=== PATIENT | female | born 1975 | race Caucasian/White ===

== ENCOUNTER → 2019-12-06 13:28 | Outpatient (CLI) | payer BC, SELFPAY ==
--- NOTE | ~2019-12-06 | MM_ITS ---
EXAMINATION: MM screening fernando BI w kaz HISTORY: Screening mammogram, family history of breast cancer in her mother. TECHNIQUE: Craniocaudal and mediolateral oblique 3-D tomosynthesis images were obtained and synthetic 2-D images were generated. CAD analysis was submitted and interpreted. COMPARISON: 05/30/2018, 05/18/2018, 05/09/2018 BREAST PARENCHYMAL COMPOSITION: The breasts are heterogeneously dense, which may obscure small masses . FINDINGS: There has been interval right breast biopsy. Stable low-density masses are present in the u pper outer quadrant of the right breast in the lower right breast. There is no evidence of suspicious mass, calcification, or architectural distortion to suggest malignancy in either breast. There has b een no suspicious interval change. IMPRESSION: 1. No mammographic evidence of malignancy. 2. Recommend routine screening mammography in one year. BI-RADS Category 2: Benign finding(s). Reviewed, dictated and finalized at location A. 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
== END ==
PROVIDERS: PCP Family Medicine; Visit Provider Obstetrics & Gynecology
DX: Z12.31 Encounter for screening mammogram for malignant neoplasm of breast (principal)
CPT/HCPCS: 77063; 77067

== ENCOUNTER 2020-06-22 13:31 | Emergency (ER) | payer BC, SELFPAY ==
[2020-06-22 13:42] VITALS: BP 128/104; PULSE 106; RESP 16; TEMP 37.5; O2SAT 100
--- NOTE | 2020-06-22 14:04 | ECG_ITS ---
Measurements Intervals Lyons Rate: 94 P: 57 LA: 161 QRS: -43 QRSD: 93 T: 66 QT: 341 QTc: 428 Interpretive Statements SINUS RHYTHM POSSIBLE LEFT ATRIAL ENLARGEMENT LEFT AXIS DEVIATION INCOMPLETE RIGHT BUNDLE BRANCH BLOCK LOW QRS VOLTAGE IN PRECORDIAL LEADS BORDERLINE ECG Electronically Signed On 06-22-2020 18:07:18 CDT by Mikey Bennett D.O.
--- NOTE | 2020-06-22 14:30 | ED.UPPEXIN ---
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 Patient states she has a couple-day worsening, of known couple-year history of intermittent left shoulder pain. She states in the past she is worn a sling and been treated for frozen shoulder. A week ago [not this week] she was painting with overhead work. She now has a weekend history of left shoulder pain especially at her biceps insertion and AC joint. No trauma, swelling, neck pain, gait changes, radiating pain, precordial chest pain, calf pain/edema, S OB; symptoms are mild to moderate worse with activity. She requests refill of prior inhaler for allergy season . Related Data Allergies Allergy/AdvReac Type Severity Reaction Status Date / Time iodine Allergy Unknown HIVES/HEADACHE/N Verified 06/22/20 14:16 AND V Review of Systems Review of Systems: Narrative: The patient has been informed that they may have pre-hypertension or Hypertension based on a BP reading in the department. I recommend that the patient call the primary care provider listed on their discharge instructions or a physician of their choice this week to arrange follow up for further evaluation of possible pre-hypertension or Hypertension General/Constitutional: No weight loss,fever Eyes: N0: Redness,discharge Ears/Nose/Throat: No: Epistaxis,ear discharge Respiratory: Denies: Hemoptysis Gastrointestinal: No Vomiting, Bleeding-rectal Skin: No Lumps, eruption Neurologic: No Focal Weakness,Sz Hematologic: Denies: Petechiae/Purpura Psychiatric: No: Suicida ideationl All Other Systems: Reviewed and Negative [facility] Family History Family History (Updated 06/30/16 @ 09:29 by DOCTOR UNKNOWN) Mother Family history of malignant neoplasm of breast Family history of malignant neoplasm of thyroid Father Family history of type 2 diabetes mellitus Other Family history of type 1 diabetes mellitus Social History Social History Smoking status: Never smoker Alcohol intake: never Comments At time of signature, agree with nursing past medical, surgical, social and family history. There is no relevant family history pertinent to the presenting complaint Exam Narrative: Exam Narrative: General Appearance: Well appearing, Conjunctiva clear Mouth/Throat: Normal appearing, Normal lips Supple Respiratory: Airway patent, No respiratory distress MS-shoulder: Normal strength (mostly intact, limited flexion/extension, IR/ER by pain), Tenderness (biceps tendon insertion and AC joint, with mod-severe decreased ROM), no swelling , Other -unable to do drop arm, empty can, etc. testings Skin: Warm, Dry, Normal color Neurological: A&O x3, Speech clear, Normal affect Course Course Emergency Course: EKG sinus rhythm at 94 and possible LAE, rate 94, LAD -45 ,possible RV CD Vital Signs Vital signs: Vital Signs Temperature 99.5 F 06/22/20 13:42 Pulse Rate 106 H 06/22/20 13:42 Respiratory Rate 16 06/22/20 13:42 Blood Pressure 128/104 H 06/22/20 13:42 Pulse Oximetry 100 06/22/20 13:42 Temperature 99.5 F 06/22/20 13:42 Pulse Rate 106 H 06/22/20 13:42 Respiratory Rate 16 06/22/20 13:42 Blood Pressure 128/104 H 06/22/20 13:42 Pulse Oximetry 100 06/22/20 13:42 Discharge Plan Discharge Clinical Impression: Biceps tendonitis on left, Abnormal ECG Patient Disposition: Home, Self-Care Condition: Stable Instructions: Shoulder Bursitis (ED) Prescriptions: New prednisone 20 mg tablet 60 mg PO DAILY Qty: 15 RF: 0 acetaminophen-codeine 300-30 mg tablet 1 tablet PO HS PRN (Reason: pain) Qty: 10 RF: 0 tramadol 50 mg tablet 50 mg PO Q6H PRN (Reason: pain) Qty:
== END 2020-06-22 14:31 | disposition home or self-care (01) ==
PROVIDERS: Emergency Provider Emergency Medicine; PCP Family Medicine
DX: M75.22 Bicipital tendinitis, left shoulder (principal); R94.31 Abnormal electrocardiogram [ECG] [EKG]
CPT/HCPCS: 93005; 99213; G0463

== ENCOUNTER → 2020-08-01 10:24 | Outpatient (CLI) | payer BC, SELFPAY ==
--- NOTE | ~2020-08-01 | MR_ITS ---
EXAMINATION: MR shoulder LT wo con DATE: 08/01/2020 11:17 INDICATION: Left shoulder pain. TECHNIQUE: Magnetic resonance imaging (MRI) of the left shoulder was performed without intravenous co ntrast. Sequences included axial PD-weighted FS FSE, coronal oblique PD-weighted FS FSE and T2-weight ed FS FSE, and sagittal oblique T2-weighted FS FSE and T1-weighted FSE. COMPARISON: None. FINDINGS: Coracoacromial arch: The acromion undersurface is flat in morphology (type I). There is mild acromioclavicular joint osteo arthritis. There is mild subacromial/subdeltoid bursitis. Rotator cuff: There is moderate supraspinatus and anterior infraspinatus tendinopathy. No tear. Teres minor tendon is normal. There is moderate subscapularis tendinopathy. There is no asymmetric fatty atrophy of the rotator cuff muscle bellies. Biceps tendon and glenoid labrum: Biceps tendon is in bicipital groove. Intra-articular biceps tendon is normal. Glenoid labrum is norm al. Fluid: There is no glenohumeral joint effusion. Bones/cartilage: The glenoid cartilage is normal. The humeral head cartilage is normal. IMPRESSION: 1. Moderate rotator cuff tendinopathy. No tear. 2. Mild subacromial/subdeltoid bursitis. 3. Mild acromioclavicular joint osteoarthritis. Reviewed, dictated and finalized at location A.
== END ==
PROVIDERS: Visit Provider Nurse Practitioner Family
DX: M19.012 Primary osteoarthritis, left shoulder (principal); M75.52 Bursitis of left shoulder
CPT/HCPCS: 73221

== ENCOUNTER → 2020-12-08 10:22 | Outpatient (CLI) | payer BC, SELFPAY ==
--- NOTE | ~2020-12-08 | MM_ITS ---
EXAMINATION: MM screening fernando BI w kaz HISTORY: Screening mammogram, family history of breast cancer in her mother. TECHNIQUE: Craniocaudal and mediolateral oblique 3-D tomosynthesis images were obtained and synthetic 2-D images were generated. CAD analysis was submitted and interpreted. COMPARISON: 12/06/2019, 05/30/2018, 05/09/2018 BREAST PARENCHYMAL COMPOSITION: The breasts are heterogeneously dense, which may obscure small masses . FINDINGS: There are multiple stable bilateral masses in the breasts, previously characterized as cyst s. One obscured mass at the 12:00 location in the left breast is slightly enlarged but was also previ ously shown to be a cyst. There is no evidence of suspicious mass, calcification, or architectural di stortion to suggest malignancy in either breast. There has been no suspicious interval change. IMPRESSION: 1. No mammographic evidence of malignancy. 2. Recommend routine screening mammography in one year. BI-RADS Category 2: Benign finding(s). Reviewed, dictated and finalized at location A. 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
== END ==
PROVIDERS: Visit Provider Obstetrics & Gynecology
DX: Z12.31 Encounter for screening mammogram for malignant neoplasm of breast (principal)
CPT/HCPCS: 77063; 77067

== ENCOUNTER 2021-09-24 12:50 | Outpatient (CLI) | payer BC, SELFPAY ==
--- NOTE | ~2021-09-24 | US_ITS ---
EXAMINATION: US pelvic complete DATE: 09/24/2021 13:16 INDICATION: Abnormal uterine bleeding TECHNIQUE: Multiple transabdominal and endovaginal sonographic images of the pelvis were obtained. COMPARISON: 11/15/2018 FINDINGS: The uterus measures 13 x 6.5 x 6.6 cm. There is a questionable 4.1 cm isoechoic mass of the posterior uterine body which has an appearance suggestive of an intramural fibroid. The endometrial complex measures 6 mm. The right ovary measures 2.4 x 2.2 x 2.9 cm. The left ovary measures 3.6 x 2.8 x 5.3 cm. There is normal vascular flow in the ovaries. There is no free fluid in the pelvis. IMPRESSION: 1. No sonographic correlate for the patient's symptoms. Reviewed, dictated and finalized at location A. WORKER
== END 2021-09-24 12:51 ==
PROVIDERS: Visit Provider Obstetrics & Gynecology
DX: N93.8 Other specified abnormal uterine and vaginal bleeding (principal)
CPT/HCPCS: 76856

== ENCOUNTER 2021-10-25 01:24 | Day surgery (SDC) | payer BC, SELFPAY ==
[2021-10-18 15:13] VITALS: BMI 27.7
--- NOTE | 2021-10-18 15:23 | PC.NURSE ---
Report to the Outpatient Waiting Room, entrance under the green pavilion located off [facility], at time 0915 on date 10/25/21. OR Time: 1115. - You will be asked a series of questions to screen for COVID 19 for your protection. - A mask is required within the hospital. - No visitors are allowed at this time. Preoperative COVID Testing Requirements: No COVID Test needed if: (proof is required; if not received patient will have Rapid Test prior to entry) - Patient has received COVID Vaccine at least 14 days prior to procedure date or - Patient has positive COVID test result within last 90 days of surgery date. COVID Test needed if above criteria is not met Patients may have clear liquids (water, carbonated beverages, clear teas, apple juice) until 3 hours prior to surgery with a maximum of 20 ounces. - No food from midnight until time of surgery Take the following medications with a SIP of water the morning of surgery: INHALER (IF NEEDED) Medications to discontinue per physician: VITAMINS/SUPPLEMENTS Date to take last dose: 10/21/21 Please no make-up, nail romanian, hairspray, perfume, deodorant, or body powder the day of surgery. No jewelry (including any body piercings) or valuables the day of surgery, leave them at home. Please take a shower or bath the night before, or the morning of, surgery with an antibacterial soap. Wear comfortable, loose fitting clothing. - Jewelry must be removed prior to entering the operating room. Rings and piercings that are not removed may be cut off. - The hospital will not accept responsibility for valuables. - Please leave all valuables, including medications, at home the day of surgery. If you are going home after surgery, a licensed minibus driver must drive you home. - NO public transportation without another adult. - We recommend that an adult stay with you for 24 hours following discharge. - We also recommend that you do not drive, make important decision, drink alcoholic beverages, or take any drugs that were not prescribed by your health care provider for at least 24 hours after your discharge time. Follow any additional instructions given to you from your surgeon. Telephone instructions given to ARSEN MARIN and asked if any additional questions and then verbalized understanding. Patient advised to call surgeon office or pre surgery nurse liaison [phone] if any additional questions.
--- NOTE | 2021-10-25 07:23 | WPDHPUPDATE1 ---
History and Physical Update Update Date/Time: 10/25/21 07:23 History and Physical has been reviewed, including an updated exam of the patient. There are NO changes in the patient's condition. Risks, benefits, and alternatives have been discussed and questions answered. Patient agrees to proceed with procedure.
--- NOTE | 2021-10-25 07:24 | PM.HPGS ---
History of Present Illness History of Present Illness Consent: Risks, benefits, and alternatives have been discussed and questions answered. Patient agrees to proceed with procedure. Chief complaint: menorrhagia Narrative: Erinn Vargas is a 46 year old female with irregular and prolonged cycles. Patient is status post endometrial ablation in 2019. The patient underwent ultrasound September 24 with a possible intramural fibroid. It was recommended to further evaluate with D&C hysteroscopy. Risks of infection, bleeding, perforation, and possible inability to enter the cavity were reviewed with the patient. She was given Cytotec for 5 days prior to the procedure. Patient agrees to proceed Review of Systems Review of Systems: not repeated day of surgery; patient states no changes in status Genitourinary: Genitourinary: Reports other (Increased cramping) PMFSH Past Medical History Medical History (Updated 10/25/21 @ 07:28 by Ngozi Jones MD) Arthritis Asthma BMI 27.0-27.9,adult Claustrophobia GERD (gastroesophageal reflux disease) (normal spontaneous vaginal delivery) x3 Surgical History Surgical History (Updated 10/25/21 @ 07:27 by Ngozi Jones MD) History of breast biopsy History of endometrial ablation History of hysteroscopy Family History Family History Mother Family history of malignant neoplasm of breast Family history of malignant neoplasm of thyroid Father Family history of type 2 diabetes mellitus Other Diabetes mellitus Family history of type 1 diabetes mellitus Heart disease High cholesterol Hypertension Medullary carcinoma Skin cancer Social History Social History Smoking status: Never smoker Alcohol intake: current Drinks per week: 1 Alcohol use details: 2/MONTH Substance use: never Substance use type: does not use Living arrangements: with family Additional living arrangements comments: and 2 daUGHTERS Additional occupation/education comments: Gender identity (if verbalized by the patient): Female Sexual Orientation (if Verbalized by the Patient): Straight or Heterosexual Spiritual care concerns: No Agree to blood products: Yes Meds Home Medications and Allergies Home Medications Medication Instructions Recorded Confirmed Type montelukast 10 mg tablet See Rx Instructions .ROUTE 04/26/21 10/18/21 Rx .COMPLEX #90 tablet albuterol sulfate 90 mcg/actuation 1 inh INHALATION Q4H PRN #8.5 g 06/28/21 10/18/21 Rx aerosol inhaler [id number] carb-vit K 1 tablet PO DAILY 10/18/21 10/18/21 History [Women's Multivitamin] omeprazole magnesium [Prilosec OTC] 20 mg PO DAILY PRN 10/18/21 10/18/21 History Allergies Allergy/AdvReac Type Severity Reaction Status Date / Time shellfish derived Allergy Intermediate Hives Verified 10/18/21 15:11 iodine Allergy Unknown HIVES/HEADACHE/N Verified 10/18/21 15:11 AND V Exam Const: General: healthy appearing and alert Orientation/consciousness: patient oriented x3 Resp: Effort & Inspection: normal respiratory effort Auscultation: clear to auscultation bilaterally Cardio: Rate: regular rate Rhythm: regular rhythm GI: GI Palp: Yes Soft to palpation, No Tenderness to palpation present (GI) and No Palpable mass present : External Female Exam: normal external appearance Speculum Exam - Vagina: normal appearance of the vagina and normal vaginal discharge Speculum Exam - Cervix: normal appearance of the cervix Bimanual exam- vagina & uterus: consistency normal and enlarged Bimanual Exam- Adnexa, other: normal adnexae and No adnexal tenderness Neuro: General: patient oriented x3 Assessment and Plan Assessment and plan (1) Irregular menses: Code(s): N92.6 - Irregular menstruation, unspecified Status: Acute Asses
--- NOTE | 2021-10-25 08:20 | WPDANESEPPF ---
Anes - Initial Pre Proc Eval Procedure: Operation Date: 10/25/21 09:15 Proposed Procedures p Hysteroscopy Dilation and Curettage - Ngozi Jones MD Date/Time: 10/25/21 08:20 Surgeon: Ngozi Jones MD Pre Op Diagnosis: menorrhagia Patient Data Age: 46 Gender: F Height: 1.7 m Weight: 80 kg Allergies Allergy/AdvReac Type Severity Reaction Status Date / Time iodine Allergy Severe HIVES/HEADACHE/N Verified 10/25/21 08:24 AND V shellfish derived Allergy Severe Hives Verified 10/25/21 08:24 Home Medications Medication Instructions Recorded Confirmed Type montelukast 10 mg tablet See Rx Instructions .ROUTE 04/26/21 10/18/21 Rx .COMPLEX #90 tablet albuterol sulfate 90 mcg/actuation 1 inh INHALATION Q4H PRN #8.5 g 06/28/21 10/18/21 Rx aerosol inhaler [id number] carb-vit K 1 tablet PO DAILY 10/18/21 10/18/21 History [Women's Multivitamin] omeprazole magnesium [Prilosec OTC] 20 mg PO DAILY PRN 10/18/21 10/18/21 History Patient hx anesthesia problems: none Family hx anesthesia problems: none Results Review: All pre-operative results and documents have been reviewed as part of the pre-operative evaluation. COUNT INCLUDES THE [facility] Past Medical History Medical History Arthritis Asthma BMI 27.0-27.9,adult Claustrophobia GERD (gastroesophageal reflux disease) (normal spontaneous vaginal delivery) x3 Surgical History Surgical History History of breast biopsy History of endometrial ablation History of hysteroscopy Family History Family History Mother Family history of malignant neoplasm of breast Family history of malignant neoplasm of thyroid Father Family history of type 2 diabetes mellitus Other Diabetes mellitus Family history of type 1 diabetes mellitus Heart disease High cholesterol Hypertension Medullary carcinoma Skin cancer Social History Social History Smoking status: Never smoker Alcohol intake: current Drinks per week: 1 Alcohol use details: 2/MONTH Substance use: never Substance use type: does not use Living arrangements: with family Additional living arrangements comments: and 2 daUGHTERS Additional occupation/education comments: Gender identity (if verbalized by the patient): Female Sexual Orientation (if Verbalized by the Patient): Straight or Heterosexual Spiritual care concerns: No Agree to blood products: Yes Anes - Eval Final PreProcedure Day of Procedure 10/25/21 08:20 Patient weight: overweight Heart: regular rate and rhythm Lungs: clear to auscultation Airway: Mallampati scale class II Neurological: alert and oriented Last oral intake: >/= 8 hours ASA classification: II Emergent: no Anesthetic plan: proceed Anesthesia type and monitoring: general GIVS and standard monitoring Results Review: All pre-operative results and documents have been reviewed as part of the pre-operative evaluation. Informed Consent: The patient's anesthetic plan and its attendant risks and benefits were discussed with the patient/family/POA. Questions were solicited and answers provided to the satisfaction of the patient/family/POA.
[2021-10-25] MEDS: ACETAMINOPHEN 500 MG TABLET 1000 MG PO (08:28)
[2021-10-25] MEDS: LACTATED RINGERS 1,000 ML 30 ML IV CONT ×2 (08:30→09:50)
[2021-10-25 08:42] VITALS: BP 125/80; PULSE 80; RESP 20; TEMP 37.6; O2SAT 100
--- NOTE | 2021-10-25 09:26 | W.PM.PROC2 ---
Procedure Note - Detailed Date of Procedure 10/25/21 Pre-op Diagnosis menorrhagia Post-op Diagnosis same Procedure Performed D&C hysteroscopy Surgeon Ngozi Jones MD Anesthesia MAC and local Findings internal os stenosis; Uterus sounds to 8cm and appears grossly normal Description of Procedure the patient is taken to the operating room and placed under anesthesia in the dorsal lithotomy position. She was prepped and draped in the usual sterile fashion. Notrees speculum was placed in the vagina and the cervix is grasped on the anterior lip with a tenaculum. The cervix is injected in each quadrant with 1% lidocaine. The uterus is attempted to be sounded and there is stenosis and approximately 3cm. The os Finders were used and the cervix was then able to be dilated to an 8 Hegar. The uterus is sounded to 8cm. The diagnostic hysteroscope was placed and no abnormalities were noted. Hysteroscope was removed and the medium sharp curette used to curette the endometrium until a good uterine cry is noted in all areas. All instruments are removed. Patient is awakened from anesthesia and taken to recovery in stable condition. Sponge, needle, and instrument counts are correct per the OR staff. Estimated Blood Loss 5 Drains No Packing No Pathology yes ( endometrial curettings) Complications No immediate complications Condition stable Disposition PACU
[2021-10-25 09:29] VITALS: BP 92/63; PULSE 62; RESP 12; O2SAT 98
[2021-10-25 09:55] VITALS: BP 109/67; PULSE 67; RESP 16; O2SAT 99
[2021-10-25] MEDS: oxyCODONE HCL (*CRX) 5 MG TAB IR PO (10:00)
[2021-10-25 10:23] VITALS: BP 113/75
== END 2021-10-25 10:50 | disposition home or self-care (01) ==
PROVIDERS: PCP Family Medicine; Visit Provider Obstetrics & Gynecology Gynecology
PROC: 0U5B8ZZ Destruction of Endometrium, Via Natural or Artificial Opening Endoscopic (ICD-10-PCS; CPT 58563; principal; 2021-10-25 09:15)
DX: N92.1 Excessive and frequent menstruation with irregular cycle (principal); N84.0 Polyp of corpus uteri; N88.2 Stricture and stenosis of cervix uteri; M19.90 Unspecified osteoarthritis, unspecified site; J45.909 Unspecified asthma, uncomplicated; Z79.51 Long term (current) use of inhaled steroids; K21.9 Gastro-esophageal reflux disease without esophagitis; F40.240 Claustrophobia
CPT/HCPCS: 58558; 88305; A9270; J2250; J2405; J2704; J3010; J7030; J7120

== ENCOUNTER 2022-01-12 10:25 | Outpatient (CLI) | payer BC, SELFPAY ==
--- NOTE | ~2022-01-12 | MMUS_ITS ---
EXAMINATION: MM diagnostic fernando BI w kaz, US breast BI limited HISTORY: Palpable lump of the subareolar left breast TECHNIQUE: Craniocaudal, mediolateral, and mediolateral oblique 3-D tomosynthesis images of the david ts were performed and synthetic 2-D images were generated. CAD analysis was submitted and interpreted . High resolution limited bilateral breast ultrasound was performed. COMPARISON: 12/08/2020, 12/06/2019, 05/30/2018 BREAST PARENCHYMAL COMPOSITION: The breasts are heterogeneously dense, which may obscure small masses . FINDINGS: MAMMOGRAPHIC FINDINGS: Left breast: There is an approximately 1.8 cm oval, obscured, equal density mass in the subareolar as pect of the slightly upper, slightly inner breast corresponding to the palpable abnormality of concer n. No suspicious calcification or architectural distortion are identified. Right breast: There is an approximately 6 mm oval, circumscribed, equal density mass in the posterior third of the outer breast at the 9:00 location 8.5 cm from the nipple. ULTRASOUND: Left breast: There is a 1.8 cm predominantly anechoic mass with mobile internal debris at the 11:00 l ocation 3 cm from the nipple corresponding to the palpable abnormality of concern, consistent with a cyst. An adjacent 7 mm cyst with similar sonographic features is noted. Right breast: Multiple hypoechoic and anechoic masses are again seen in the upper outer quadrant of t he right breast which have an appearance similar to prior ultrasound examination. None definitely dem onstrate suspicious interval change IMPRESSION: 1. Complicated cyst in the subareolar left breast corresponding to the palpable abnormality of concer n and probably benign masses in the upper outer quadrant of the right breast. 2. Recommend 6 month follow-up right diagnostic mammogram and ultrasound. BI-RADS category 3, probably benign findings. Reviewed, dictated and finalized at location A. IMPRESSION: 1. Complicated cyst in the subareolar left breast corresponding to the palpable abnormality of concern and probably benign masses in the upper outer quadrant of the right breast. 2. Recommend 6 month follow-up right diagnostic mammogram and ultrasound. BI-RADS category 3, probably benign findings.
== END 2022-01-12 10:26 ==
PROVIDERS: Visit Provider Obstetrics & Gynecology Gynecology
DX: N63.20 Unspecified lump in the left breast, unspecified quadrant (principal); R92.8 Other abnormal and inconclusive findings on diagnostic imaging of breast
CPT/HCPCS: 76642; 77062; 77066; G0279

== ENCOUNTER 2022-07-05 08:44 | Outpatient (CLI) | payer BC, SELFPAY ==
--- NOTE | ~2022-07-05 | MMUS_ITS ---
EXAMINATION: MM diagnostic fernando BI w kaz, US breast RT limited HISTORY: Six-month follow-up for probably benign right breast masses TECHNIQUE: Craniocaudal, mediolateral, and mediolateral oblique 3-D tomosynthesis images of the david ts were performed and synthetic 2-D images were generated. CAD analysis was submitted and interpreted . High resolution limited right breast ultrasound was performed. COMPARISON: 01/12/2022, 12/08/2020, 12/06/2019, 05/30/2018 BREAST PARENCHYMAL COMPOSITION: The breasts are heterogeneously dense, which may obscure small masses . FINDINGS: MAMMOGRAPHIC FINDINGS: The previously described subareolar left breast mass is no longer evident. There are stable obscured bilateral breast masses without suspicious interval change. ULTRASOUND: Again seen are multiple stable hypoechoic and anechoic masses in the upper outer quadrant of the righ t breast. None demonstrate suspicious interval change. IMPRESSION: 1. Stable, probably benign right breast masses. 2. Recommend 6 month follow-up right diagnostic mammogram and ultrasound. BI-RADS category 3, probably benign findings. Reviewed, dictated and finalized at location A. IMPRESSION: 1. Stable, probably benign right breast masses. 2. Recommend 6 month follow-up right diagnostic mammogram and ultrasound. BI-RADS category 3, probably benign findings.
== END 2022-07-05 08:45 ==
PROVIDERS: PCP Family Medicine; Visit Provider Obstetrics & Gynecology Gynecology
DX: R92.8 Other abnormal and inconclusive findings on diagnostic imaging of breast (principal)
CPT/HCPCS: 76642; 77062; 77066; G0279

== ENCOUNTER → 2022-10-18 10:16 | Outpatient (CLI) | payer BC, SELFPAY ==
--- NOTE | ~2022-10-18 | US_ITS ---
Pelvic ultrasound. Clinical History: Pelvic pain Technique: Realtime transabdominal and transvaginal scanning of the pelvis was performed. Color flow Doppler and Doppler spectral analysis were performed. COMPARISON: 09/24/2021 Findings: The uterus is anteverted. The endometrial stripe has a thickness of 3 mm. Exophytic fundal fibroid measures 2.4 cm in diameter. Possible isoechoic posterior wall fibroid measures 4.1 cm, unch anged. The right ovary measures 3.6 x 1.9 x 2.3 cm. No significant right ovarian or adnexal mass is seen. The left ovary measures 3.9 x 2.5 x 2.9 cm. No significant left ovarian or adnexal mass is seen. Vascular flow present in both ovaries on Doppler spectral analysis. There is no evidence of free fluid in the cul de sac. Impression: Uterine fibroids, as above, unchanged. Reviewed, dictated and finalized at [facility]. [facility]INGLE [facility]OOFER Impression: Uterine fibroids, as above, unchanged.
== END ==
PROVIDERS: PCP Family Medicine; Visit Provider Nurse Practitioner
DX: R10.2 Pelvic and perineal pain (principal); D25.9 Leiomyoma of uterus, unspecified
CPT/HCPCS: 76856

== ENCOUNTER 2022-11-07 00:47 | Day surgery (SDC) | payer BC, SELFPAY ==
[2022-10-25 10:12] VITALS: BMI 28.7
--- NOTE | 2022-11-04 12:07 | PM.HPGS ---
History of Present Illness History of Present Illness Consent: Risks, benefits, and alternatives have been discussed and questions answered. Patient agrees to proceed with procedure. Chief complaint: neoplasm screening Narrative: Erinn Vargas is a 47 year old female referred for colon cancer screening. Review of Systems Review of Systems: All systems reviewed & are unremarkable except as noted in HPI and below PMFSH Past Medical History Medical History Arthritis Asthma BMI 27.0-27.9,adult Claustrophobia GERD (gastroesophageal reflux disease) (normal spontaneous vaginal delivery) x3 Overweight with body mass index (BMI) of 28 to 28.9 in adult Overweight with body mass index (BMI) of 28 to 28.9 in adult Surgical History Surgical History H/O dilation and curettage History of breast biopsy History of endometrial ablation History of hysteroscopy Family History Family History Mother Family history of malignant neoplasm of breast Family history of malignant neoplasm of thyroid Father Family history of type 2 diabetes mellitus Other Diabetes mellitus Family history of type 1 diabetes mellitus Heart disease High cholesterol Hypertension Medullary carcinoma Skin cancer Social History Social History Smoking status: Never smoker Alcohol intake: current Drinks per week: 1 Alcohol use details: 2/MONTH Substance use: never Substance use type: does not use Living arrangements: alone Additional living arrangements comments: and 2 daUGHTERS Occupation/Education: occupation Additional occupation/education comments: Gender identity (if verbalized by the patient): Female Sexual Orientation (if Verbalized by the Patient): Straight or Heterosexual Spiritual care concerns: No Agree to blood products: Yes Meds Home Medications and Allergies Home Medications Medication Instructions Recorded Confirmed Type omeprazole magnesium 20 mg 20 mg PO DAILY 10/18/21 11/04/22 History tablet,delayed release (Prilosec OTC) montelukast 10 mg tablet 10 mg PO HS #90 tabs 04/26/22 11/04/22 Rx levonorgestrel-ethinyl estradiol 1 tablet PO DAILY 10/25/22 11/04/22 History 0.1 mg-20 mcg tablet (Lutera (28)) albuterol sulfate 90 mcg/actuation 1 inh inhalation Q4H PRN shortness 11/04/22 11/04/22 Rx aerosol inhaler (ProAir HFA) of breath or wheezing #8.5 grams budesonide-formoterol HFA 160 1 inh inhalation PRN PRN Shortness 11/04/22 11/04/22 Rx mcg-4.5 mcg/actuation aerosol Of Breath #10.2 grams inhaler (Symbicort) Allergies Allergy/AdvReac Type Severity Reaction Status Date / Time iodine Allergy Severe HIVES/HEADACHE/N Verified 11/07/22 08:43 AND V shellfish derived Allergy Severe Hives Verified 11/07/22 08:43 Exam Resp: Auscultation: clear to auscultation bilaterally Cardio: Rate: regular rate Rhythm: regular rhythm GI: GI Palp: Yes Soft to palpation and No Tenderness to palpation present (GI) Assessment and Plan Assessment and plan (1) Colon cancer screening: Code(s): Z12.11 - Encounter for screening for malignant neoplasm of colon Status: Acute Assessment and Plan: Colonoscopy with possible biopsy or polypectomy or cautery or injection of substances.
[2022-11-07 08:49] VITALS: BP 134/87; PULSE 106; RESP 18; TEMP 36.6; O2SAT 100
[2022-11-07] MEDS: LACTATED RINGERS 1,000 ML 150 ML IV CONT (09:02)
--- NOTE | 2022-11-07 09:41 | WPDANESEPPF ---
Anes - Initial Pre Proc Eval Procedure: Operation Date: 11/07/22 10:00 Proposed Procedures p Screening Colonoscopy - Jose Frankel MD Date/Time: 11/07/22 09:41 Surgeon: Jose Frankel MD Pre Op Diagnosis: neoplasm screening Patient Data Age: 47 Gender: F Height: 1.7 m Weight: 83.8 kg Last Vital Signs Temp 97.8 F 11/07/22 08:49 Pulse 106 H 11/07/22 08:49 Resp 18 11/07/22 08:49 BP 134/87 11/07/22 08:49 Pulse Ox 100 11/07/22 08:49 O2 Del Method Room Air 11/07/22 08:49 Allergies Allergy/AdvReac Type Severity Reaction Status Date / Time iodine Allergy Severe HIVES/HEADACHE/N Verified 11/07/22 08:43 AND V shellfish derived Allergy Severe Hives Verified 11/07/22 08:43 Home Medications Medication Instructions Recorded Confirmed Type omeprazole magnesium 20 mg 20 mg PO DAILY 10/18/21 11/04/22 History tablet,delayed release (Prilosec OTC) montelukast 10 mg tablet 10 mg PO HS #90 tabs 04/26/22 11/04/22 Rx levonorgestrel-ethinyl estradiol 1 tablet PO DAILY 10/25/22 11/04/22 History 0.1 mg-20 mcg tablet (Lutera (28)) albuterol sulfate 90 mcg/actuation 1 inh inhalation Q4H PRN shortness 11/04/22 11/04/22 Rx aerosol inhaler (ProAir HFA) of breath or wheezing #8.5 grams budesonide-formoterol HFA 160 1 inh inhalation PRN PRN Shortness 11/04/22 11/04/22 Rx mcg-4.5 mcg/actuation aerosol Of Breath #10.2 grams inhaler (Symbicort) Patient hx anesthesia problems: none Family hx anesthesia problems: none Results Review: All pre-operative results and documents have been reviewed as part of the pre-operative evaluation. [facility] Past Medical History Medical History (Updated 11/04/22 @ 12:07 by Jose Frankel MD) Arthritis Asthma BMI 27.0-27.9,adult Claustrophobia GERD (gastroesophageal reflux disease) (normal spontaneous vaginal delivery) x3 Overweight with body mass index (BMI) of 28 to 28.9 in adult Overweight with body mass index (BMI) of 28 to 28.9 in adult Surgical History Surgical History H/O dilation and curettage History of breast biopsy History of endometrial ablation History of hysteroscopy Family History Family History Mother Family history of malignant neoplasm of breast Family history of malignant neoplasm of thyroid Father Family history of type 2 diabetes mellitus Other Diabetes mellitus Family history of type 1 diabetes mellitus Heart disease High cholesterol Hypertension Medullary carcinoma Skin cancer Social History Social History Smoking status: Never smoker Alcohol intake: current Drinks per week: 1 Alcohol use details: 2/MONTH Substance use: never Substance use type: does not use Living arrangements: alone Additional living arrangements comments: and 2 daUGHTERS Occupation/Education: occupation Additional occupation/education comments: Gender identity (if verbalized by the patient): Female Sexual Orientation (if Verbalized by the Patient): Straight or Heterosexual Spiritual care concerns: No Agree to blood products: Yes Anes - Eval Final PreProcedure Day of Procedure 11/07/22 09:41 Patient weight: normal Heart: regular rate and rhythm Lungs: clear to auscultation Airway: Mallampati scale class II Neurological: alert and oriented Last oral intake: >/= 8 hours ASA classification: II Emergent: no Anesthetic plan: proceed Anesthesia type and monitoring: general GIVS and standard monitoring Results Review: All pre-operative results and documents have been reviewed as part of the pre-operative evaluation. Informed Consent: The patient's anesthetic plan and its attendant risks and benefits were discussed with the patient/family/POA. Questions were solicited and answers provided to the satisfaction of the
[2022-11-07] MEDS: SIMETHICONE ORAL SUSPENSION 20 MG/0.3 ML 30 ML BOTTLE 0.6 ML IRRIGATION (10:12)
[2022-11-07 10:29] VITALS: BP 101/68; PULSE 93; RESP 26; O2SAT 97
[2022-11-07 10:39] VITALS: BP 101/71; PULSE 90; RESP 21; O2SAT 100
[2022-11-07 10:49] VITALS: BP 108/72; PULSE 90; RESP 22; O2SAT 100
--- NOTE | 2022-11-07 10:49 | SUR.PHASEII ---
Zoya Laboy CRNA, had patient take 2 puffs of inhaler when she arrived in post-op room. Patient's O2 sat has remained 97% and greater while in post-op.
== END 2022-11-07 10:53 | disposition home or self-care (01) ==
PROVIDERS: PCP Nurse Practitioner Family; Visit Provider Internal Medicine Gastroenterology
PROC: 0DJD8ZZ Inspection of Lower Intestinal Tract, Via Natural or Artificial Opening Endoscopic (ICD-10-PCS; CPT 45378; principal; 2022-11-07 10:00)
DX: Z12.11 Encounter for screening for malignant neoplasm of colon (principal); K64.8 Other hemorrhoids; J45.909 Unspecified asthma, uncomplicated; K21.9 Gastro-esophageal reflux disease without esophagitis; Z79.51 Long term (current) use of inhaled steroids
CPT/HCPCS: 45378; J2001; J2704; J7120

== ENCOUNTER → 2023-01-02 07:53 | Outpatient (CLI) | payer BC, SELFPAY ==
--- NOTE | ~2023-01-02 | MMUS_ITS ---
EXAMINATION: MM diagnostic fernando RT w kaz, US breast RT limited HISTORY: Follow-up right breast masses TECHNIQUE: Additional 3-D tomosynthesis images of the right breast were performed and synthetic 2-D i mages were generated. CAD analysis was submitted and interpreted. High resolution Limited right breas t ultrasound was performed. COMPARISON: Comparison to multiple prior studies sequentially, with oldest reviewed study dated 05/30. BREAST PARENCHYMAL COMPOSITION: The breasts are heterogeneously dense, which may obscure small masses FINDINGS: MAMMOGRAPHIC FINDINGS: There are multiple masses of the right breast which are not significantly changed by mammography dati ng back to 05/30/2018 no new masses, calcifications or architectural distortion. Allowing for differen sharita of technique. ULTRASOUND: Limited right breast ultrasound: At 12:00, 4 cm from the nipple there is a minimally complicated 7 mm cyst. At 12:00, 6 cm from the nipple, there is a oval hypoechoic mass measuring 6 mm with circumscri bed margins, parallel orientation, likely benign. At 11:00, 8 cm from the nipple there is an oval hyp oechoic mass measuring 10 x 9 x 8 mm. No significant change to size allowing for differences of techn ique. No internal vascularity or significant posterior features. At 11:00, 7 cm from the nipple there is a 4 mm cyst. At 10:00, 6 cm from the nipple there is a 6 mm cyst. At 10:00, 6 cm from the nipple there is a minimally complicated 5 mm cyst. At 10:00, 3 cm from the nipple there is a 6 mm cyst. At 1 0:00, 1 cm from the nipple there is a minimally complicated 9 mm cyst. At 9:00, 6 cm from the nipple there is an oval circumscribed hypoechoic mass with parallel orientation and no posterior features, l ikely benign. Also at this location is a 3 mm cyst. At 9:00, 1 cm from the nipple there is an oval ci rcumscribed hypoechoic mass measuring 7 x 4 x 7 mm with parallel orientation, no posterior features a nd no internal vascularity. No the areola there is a 4 mm cyst. Also near the areola there is a minim ally complicated 6 mm cyst. IMPRESSION: 1. Probable benign right breast masses at 11:00, 8 cm from the nipple and 9:00, 6 cm from the nipple. 2. Recommend 6 month follow-up diagnostic bilateral mammogram and Limited right breast ultrasound. BI-RADS category 3, probably benign findings. Reviewed, dictated and finalized at location A. IMPRESSION: 1. Probable benign right breast masses at 11:00, 8 cm from the nipple and 9:00, 6 cm from the nipple. 2. Recommend 6 month follow-up diagnostic bilateral mammogram and Limited right breast ultrasound. BI-RADS category 3, probably benign findings.
== END ==
PROVIDERS: PCP Family Medicine; Visit Provider Obstetrics & Gynecology Gynecology
DX: N63.10 Unspecified lump in the right breast, unspecified quadrant (principal); R92.8 Other abnormal and inconclusive findings on diagnostic imaging of breast
CPT/HCPCS: 76642; 77061; 77065; G0279

== ENCOUNTER 2023-01-27 08:13 | Outpatient (CLI) | payer BC, SELFPAY ==
[2023-01-27 08:47] LABS: Hematocrit 40.1 % (37.0-47.0); Hemoglobin 13.1 g/dL (12.0-15.0)
== END 2023-01-27 08:14 | disposition home or self-care (01) ==
LOC: ANHSURGERY 08:18
PROVIDERS: PCP Family Medicine; Visit Provider Obstetrics & Gynecology Gynecology
DX: Z01.812 Encounter for preprocedural laboratory examination (principal); D21.9 Benign neoplasm of connective and other soft tissue, unspecified
CPT/HCPCS: 36415; 85014; 85018; 86850; 86900; 86901

== ENCOUNTER 2023-02-06 11:04 | Inpatient (IN) | payer BC, SELFPAY ==
[2023-01-26 12:15] VITALS: BMI 28.5
--- NOTE | 2023-01-26 12:20 | PC.NURSE ---
Report to the Outpatient Waiting Room, entrance under the green pavilion located off [facility], at time 6:00 on date 02/06/23. Planned Procedure Time: 7:30. Time changes happen often and if your time is changed the preop area will call you the afternoon before. - You and your visitor will be asked to self-screen and do not enter if you have any COVID symptoms. - A mask is optional within the hospital at this time. Patients may have clear liquids (water, carbonated beverages, clear teas, apple juice) until 3 hours prior to surgery with a maximum of 20 ounces. - No food from midnight until time of surgery Take the following medications with a SIP of water the morning of surgery: INHALERS IF NEEDED DO NOT STOP ANY OF YOUR OTHER PRESCRIPTION MEDICATIONS PRIOR TO SURGERY EXCEPT THE FOLLOWING Medications to discontinue per physician: N/A Date to take last dose: N/A Please no make-up, nail cameroonian, hairspray, perfume, deodorant, or body powder the day of surgery. No jewelry (including any body piercings) or valuables the day of surgery, leave them at home. Please take a shower or bath the night before, or the morning of, surgery with an antibacterial soap. Wear comfortable, loose fitting clothing. - Jewelry must be removed prior to entering the operating room. Rings and piercings that are not removed may be cut off. - The hospital will not accept responsibility for valuables. - Please leave all valuables, including medications, at home the day of surgery. If you are going home after surgery, a licensed warehouse driver must drive you home. - NO public transportation without another adult if you receive anesthesia. - We recommend that an adult stay with you for 24 hours following discharge. - We also recommend that you do not drive, make important decision, drink alcoholic beverages, or take any drugs that were not prescribed by your health care provider for at least 24 hours after your discharge time. Follow any additional instructions given to you from your surgeon. If you or anyone in your household have experienced Covid symptoms in the past week, please notify your surgeon or the nurse liaison at the phone number below for possible testing. Telephone instructions given to PT - ARSEN MARIN and asked if any additional questions and then verbalized understanding. Patient advised to call surgeon office or pre surgery nurse liaison [phone] if any additional questions.
[2023-02-06] VITALS (17 sets, daily range): BP systolic 116–132; BP diastolic 67–86; PULSE 52–82; RESP 10–18; TEMP 36.6–37.2; O2SAT 97–100
[2023-02-06] MEDS: LACTATED RINGERS 1,000 ML 30 ML IV CONT ×3 (06:45→10:15)
[2023-02-06] MEDS: KETOROLAC 15 MG/ML VIAL (*BKC) IV PUSH (07:00)
[2023-02-06] MEDS: ACETAMINOPHEN 500 MG TABLET 1000 MG PO (07:00)
[2023-02-06] MEDS: SCOPOLAMINE 1.5 MG PATCH TRANSDERM (07:00)
--- NOTE | 2023-02-06 07:07 | WPDANESEPPF ---
Anes - Initial Pre Proc Eval Procedure: Operation Date: 02/06/23 07:30 Proposed Procedures p Total Abdominal Hysterectomy with Bilateral Salpingo-oophorectomy - Ngozi Jones MD Date/Time: 02/06/23 07:07 Surgeon: Ngozi Jones MD Pre Op Diagnosis: Fibroids, Menorrhagia, Dysmenorrhea Patient Data Age: 48 Gender: F Height: 1.71 m Weight: 83.92 kg Allergies Allergy/AdvReac Type Severity Reaction Status Date / Time iodine Allergy Severe HIVES/HEADACHE/N Verified 01/26/23 12:13 AND V shellfish derived Allergy Severe Hives Verified 01/26/23 12:13 Home Medications Medication Instructions Recorded Confirmed Type omeprazole magnesium 20 mg 20 mg PO DAILY 10/18/21 01/26/23 History tablet,delayed release (Prilosec OTC) montelukast 10 mg tablet 10 mg PO HS #90 tabs 04/26/22 01/26/23 Rx levonorgestrel-ethinyl estradiol 1 tablet PO DAILY 10/25/22 01/26/23 History 0.1 mg-20 mcg tablet (Lutera (28)) budesonide-formoterol HFA 160 1 inh inhalation PRN PRN Shortness 11/04/22 01/26/23 Rx mcg-4.5 mcg/actuation aerosol Of Breath #10.2 grams inhaler (Symbicort) albuterol sulfate 90 mcg/actuation 1 inh inhalation Q4H PRN shortness 01/15/23 01/26/23 Rx aerosol inhaler (ProAir HFA) of breath or wheezing #8.5 grams Patient hx anesthesia problems: none Family hx anesthesia problems: post op nausea/vomiting Results Review: All pre-operative results and documents have been reviewed as part of the pre-operative evaluation. [facility] Past Medical History Medical History Arthritis Asthma BMI 27.0-27.9,adult Claustrophobia GERD (gastroesophageal reflux disease) (normal spontaneous vaginal delivery) x3 Overweight with body mass index (BMI) of 28 to 28.9 in adult Overweight with body mass index (BMI) of 28 to 28.9 in adult Surgical History Surgical History H/O dilation and curettage History of breast biopsy History of endometrial ablation History of hysteroscopy Family History Family History Mother Family history of malignant neoplasm of breast Family history of malignant neoplasm of thyroid Skin cancer Father Family history of type 2 diabetes mellitus Sibling No problems noted. Other Diabetes mellitus Family history of type 1 diabetes mellitus Heart disease High cholesterol Hypertension Medullary carcinoma Social History Social History Smoking status: Never smoker Second hand tobacco smoke exposure: Yes Alcohol intake: current Drinks per week: 1 Alcohol use details: 1/MONTH Substance use: never Substance use type: does not use Lack of Transportation: No Lack of Food: Never True Current Housing: I Have Housing Concerned About Future Housing: No Difficulty Paying Gas/Electric Bills: No Difficulty Paying for Meds: No Currently Unemployed: No Education: Associate Degree Difficulty w/ Childcare or Family Care: No Living arrangements: with family Additional living arrangements comments: and 2 daUGHTERS Occupation/Education: occupation Additional occupation/education comments: Gender identity (if verbalized by the patient): Female Sexual Orientation (if Verbalized by the Patient): Straight or Heterosexual Spiritual care concerns: No Agree to blood products: Yes Anes - Eval Final PreProcedure Day of Procedure 02/06/23 07:07 Patient weight: overweight Heart: regular rate and rhythm Lungs: clear to auscultation Airway: Mallampati scale class II Neurological: alert and oriented Last oral intake: >/= 8 hours ASA classification: II Emergent: no Anesthetic plan: proceed Anesthesia type and monitoring: general ETT and standard monitoring Results Review: All pre-
--- NOTE | 2023-02-06 07:10 | WPDHPUPDATE1 ---
History and Physical Update Update Date/Time: 02/06/23 07:10 History and Physical has been reviewed, including an updated exam of the patient. There are NO changes in the patient's condition. Risks, benefits, and alternatives have been discussed and questions answered. Patient agrees to proceed with procedure.
--- NOTE | 2023-02-06 07:10 | PM.IMHP ---
H&P: HPI History of Present Illness Date/Time: 02/06/23 07:10 Chief Complaint: Fibroid uterus Narrative: 48-year-old 3 para 3 being admitted for total abdominal hysterectomy with bilateral salpingo-oophorectomy secondary to fibroid uterus that is symptomatic. Patient with increased cramping and pelvic pressure. She has tried several options for menorrhagia with minimal success. The risks infection, bleeding injury to internal organs ( bowel, bladder, ureters ) DVT and anesthesia are reviewed. The patient voices understanding and agrees to proceed. Estrogen replacement therapy pros/cons were also discussed and the patient plans to proceed. Review of Systems Review of Systems: not repeated day of surgery; patient states no changes in status All systems reviewed & are unremarkable except as noted in HPI and below ( HPI) [facility] Past Medical History Medical History (Updated 02/06/23 @ 07:14 by Ngozi Jones MD) Arthritis Asthma BMI 27.0-27.9,adult Claustrophobia GERD (gastroesophageal reflux disease) (normal spontaneous vaginal delivery) x3 Surgical History Surgical History H/O dilation and curettage History of breast biopsy History of endometrial ablation History of hysteroscopy Family History Family History Mother Family history of malignant neoplasm of breast Family history of malignant neoplasm of thyroid Skin cancer Father Family history of type 2 diabetes mellitus Sibling No problems noted. Other Diabetes mellitus Family history of type 1 diabetes mellitus Heart disease High cholesterol Hypertension Medullary carcinoma Social History Social History Smoking status: Never smoker Second hand tobacco smoke exposure: Yes Alcohol intake: current Drinks per week: 1 Alcohol use details: 1/MONTH Substance use: never Substance use type: does not use Lack of Transportation: No Lack of Food: Never True Current Housing: I Have Housing Concerned About Future Housing: No Difficulty Paying Gas/Electric Bills: No Difficulty Paying for Meds: No Currently Unemployed: No Education: Associate Degree Difficulty w/ Childcare or Family Care: No Living arrangements: with family Additional living arrangements comments: and 2 daUGHTERS Occupation/Education: occupation Additional occupation/education comments: Gender identity (if verbalized by the patient): Female Sexual Orientation (if Verbalized by the Patient): Straight or Heterosexual Spiritual care concerns: No Agree to blood products: Yes Meds Home Medications and Allergies Home Medications Medication Instructions Recorded Confirmed Type omeprazole magnesium 20 mg 20 mg PO DAILY 10/18/21 01/26/23 History tablet,delayed release (Prilosec OTC) montelukast 10 mg tablet 10 mg PO HS #90 tabs 04/26/22 01/26/23 Rx levonorgestrel-ethinyl estradiol 1 tablet PO DAILY 10/25/22 01/26/23 History 0.1 mg-20 mcg tablet (Lutera (28)) budesonide-formoterol HFA 160 1 inh inhalation PRN PRN Shortness 11/04/22 01/26/23 Rx mcg-4.5 mcg/actuation aerosol Of Breath #10.2 grams inhaler (Symbicort) albuterol sulfate 90 mcg/actuation 1 inh inhalation Q4H PRN shortness 01/15/23 01/26/23 Rx aerosol inhaler (ProAir HFA) of breath or wheezing #8.5 grams Allergies Allergy/AdvReac Type Severity Reaction Status Date / Time iodine Allergy Severe HIVES/HEADACHE/N Verified 01/26/23 12:13 AND V shellfish derived Allergy Severe Hives Verified 01/26/23 12:13 Exam Const: General: healthy appearing and alert Orientation/consciousness: patient oriented x3 Resp: Effort & Inspection: normal respiratory effort GI: GI Palp: Yes Soft to palpation, No Tenderness to palpation present (GI) and No Pa
[2023-02-06] MEDS: METHYLENE BLUE 0.5% INJ 10 ML AMPULE 20 ML IRRIGATION (08:54)
--- NOTE | 2023-02-06 09:18 | P.OP_ITS ---
Procedure Note - Detailed Date of Procedure 02/06/23 Pre-op Diagnosis Fibroids, Menorrhagia, Dysmenorrhea Post-op Diagnosis Same Procedure Performed [facility] Surgeon Ngozi Jones MD Anesthesia General Findings enlarged fibroid uterus; normal-appearing tubes and ovaries Description of Procedure The patient is taken to the operating room and placed under general anesthesia. She was prepped and draped in the usual sterile fashion. A Pfannenstiel skin i ncision was made with a scalpel and carried down to the underlying layer of fascia which was nicked in midline. The incision was extended laterally using Dexter scissors. Ochsner was used to tent the fascia which was then dissected off using sharp and blunt dissection. The rectus muscles are in the midline the peritoneum entered with a Peon. The incision is extended with blunt traction. Bowel was packed away using moist laparotomy sponges. The Dwain is placed. The uterus was grasped on the cornea with large Peons. The round ligaments are doubly ligated with 0 Vicryl, transected, and the anterior leaf of the broad ligament incised meeting in the midline. A window was created in the posterior leaf of the broad ligament and the infundibulopelvic ligaments were doubly clamped, transected, and suture ligated with 0 Vicryl. Uterine vessels are skeletonized, clamped, transected, and suture ligated with 0 Vicryl. The cardinal and uterosacral ligaments are serially clamped, transected, and suture ligated with 0 Vicryl. The uterosacral ligaments were tagged for future use. A scalpel used to enter the vaginal cuff anteriorly. Jorgensons were used to amputate the specimen grasping the vaginal cuff with Allis clamps as specimen was amputated. Vaginal cuff was then closed using 0 Vicryl in a running fashion. Same suture was used in [id number] fashion to obtain hemostasis. During closure of the cuff the anesthesia noted blood-tinged urine. The bladder was filled with methylene blue tinged sterile ceiling. No defect was noted. The bladder was then drained. The bladder flap peritoneum was raw and hemoderm was placed between the cuff and the bladder flap. No active bleeding was noted. All sponges and instruments were then removed. The fascia was closed using 0 Vicryl in a running fashion. Subcutaneous tissues were irrigated made hemostatic using Bovie cautery. Skin incision was closed using 4-0 Vicryl in a subcuticular fashion. Dermaflex was placed the incision. Patient is awakened from anesthesia and taken to recovery in stable condition. Estimated Blood Loss 300 Drains Yes ( Voss catheter) Packing No Pathology Yes ( uterus, tubes, ovaries) Complications No immediate complications Condition Stable Disposition PACU
--- NOTE | 2023-02-06 09:24 | P.DS_ITS ---
DS: Admitting Diagnosis Discharge Date 02/08/23 Admitting Diagnosis symptomatic fibroid uterus DS: Discharge Diagnosis Discharge Diagnosis (1) Status post total abdominal hysterectomy and bilateral salpingo- oophorectomy: Code(s): Z90.710 - Acquired absence of both cervix and uterus; Z90.722 - Acquired absence of ovaries, bilateral; Z90.79 - Acquired absence of other genital organ(s) Status: Acute DS: Summary Hospital Course Hospital Course: At the time of discharge, the patient is tolerating regular diet, voiding, and ambulating. Status at Discharge Functional status at discharge: independent ambulation Overall status at discharge: patient is progressing back to baseline Time Spent with Patient Time attestation: Total time spent providing and/or coordinating discharge services: DS: Data Data Completed and Pending Pending studies at discharge: Pending at discharge 02/06/23 08:32 Surgical [PTH] Routine Discharge Plan Discharge Attending physician on discharge: Ngozi Jones Discharging Clinician: Brooklyn Trivedi Anticipated Discharge Date/Time: 02/08/23 07:59 Patient Disposition: Home, Self-Care Activity: may shower, may drive after 2 weeks and pelvic rest Diet: regular Wound Care Instructions: incision open to air Patient Instructions: Hysterectomy (DC) Stand Alone Forms: General Discharge Instructions Follow-up/Referrals: Ngozi Jones MD [Physician] - 1 Week (and 6 wk) Discharge Medications: New estradiol [Climara] 0.1 mg/24 hr Patch Weekly 0.1 mg transdermal Q7D Qty: 12 0RF Continued montelukast 10 mg tablet 10 mg PO HS Qty: 90 1RF budesonide-formoterol [Symbicort] 160-4.5 mcg/actuation HFA aerosol inhaler 1 inh inhalation PRN PRN (Reason: Shortness Of Breath) Qty: 10.2 4RF omeprazole magnesium [Prilosec OTC] 20 mg Tablet,Delayed Release (Dr/Ec) 20 mg PO DAILY albuterol sulfate [ProAir HFA] 90 mcg/actuation HFA aerosol inhaler 1 inh inhalation Q4H PRN (Reason: shortness of breath or wheezing) Qty: 8.5 1RF Discontinued levonorgestrel-ethinyl estrad [Lutera (28)] 0.1-20 mg-mcg Tablet 1 tablet PO DAILY Date of admission: 02/06/23 11:04 Primary Care Provider: Alcon Solano Admitting Provider: Ngozi Jones Attending physician on admission: Brooklyn Trivedi Condition: Stable
[2023-02-06] MEDS: fentaNYL CITRATE INJ (*CRX) 100 MCG/2 ML VIAL 25 MCG IV PUSH ×6 (09:43→10:12)
[2023-02-06] MEDS: HYDROmorphone HCL INJ (*CRX) 1 MG/ML SYR IV PUSH ×2 (10:24→10:44)
--- NOTE | 2023-02-06 11:03 | PC.NURSE ---
This patient, Erinn Vargas, was received from PACU on 02/06/23 at 1103. Patient/family oriented to unit policies and routines
[2023-02-06] MEDS: DEXTROSE 5%/LACTATED RINGERS 1,000 ML 125 ML IV CONT ×2 (12:02→20:30)
[2023-02-06] MEDS: FENTANYL 600MCG/NS30MLPCA(*CRX 600 MCG/30 ML PCA.VIAL IV CONT (12:03)
[2023-02-06] MEDS: ESTRADIOL 7 DAY 0.1 MG PATCH TRANSDERM (12:30)
[2023-02-06] MEDS: ONDANSETRON INJ 4 MG/2 ML VIAL IV PUSH (18:06)
[2023-02-06] MEDS: KETOROLAC 30 MG/ML VIAL (*BKC) IV PUSH (19:13)
[2023-02-07 00:01] VITALS: RESP 18; O2SAT 99
[2023-02-07 00:09] VITALS: BP 127/74; PULSE 85; RESP 18; TEMP 37.4; O2SAT 99
[2023-02-07] MEDS: KETOROLAC 30 MG/ML VIAL (*BKC) IV PUSH ×2 (01:19→08:28)
[2023-02-07 04:38] VITALS: BP 122/75; PULSE 66; RESP 18; TEMP 37.4; O2SAT 99
[2023-02-07 05:07] LABS: Basophils Percent Auto 0.2 % (0.2-1.2); Eosinophils Percent Auto 0.3 % (0-4.4); Hematocrit 31.7 % (37.0-47.0); Hemoglobin 10.1 g/dL (12.0-15.0); Immature Granulocyte Absolute 0.06 K/mm3 (0.00-0.031); Immature Granulocyte Percent A 0.5 % (0-0.5); Lymphocytes Absolute Auto 1.58 K/mm3 (0.9-3.2); Lymphocytes Percent Auto 12.5 % (18.3-44.2); Mean Corpuscular HGB Conc 31.9 g/dl (32-36); Mean Corpuscular Hemoglobin 27.8 pg (26-34); Mean Corpuscular Volume 87.3 fl (80-100); Mean Platelet Volume 10.9 fl (7.4-10.4); Neutrophils Percent Auto 78.5 % (45.5-73.1); Platelet Count Result 239 k/mm3 (150-375); Red Blood Count 3.63 M/mm3 (4.2-5.4); Red Cell Distribution Width 14.2 % (11.5-14.5); White Blood Count 12.7 K/mm3 (4.5-10.0)
--- NOTE | 2023-02-07 07:58 | PM.GYNPNOP ---
CHILD PROTECTIVE SERVICES SOCIAL WORKER - A/P Postoperative Procedures: Procedures Operation Date: 02/06/23 07:30 Actual Procedure Side Surgeon p Total Abdominal Hysterectomy with Bilateral Salpingo-oophorectomy Not Applicable Ngozi Jones MD Postoperative day: 1 Postoperative status: doing well Time Spent With Patient Time: Total time spent is greater than 50% in coordination of care (as documented) at patient's floor/unit and/or counseling patient: Time with patient: less than 15 minutes CHILD PROTECTIVE SERVICES SOCIAL WORKER- PN:Subj Post-Op Subjective Date/time seen: 02/07/23 07:58 Subjective: patient has no complaints, pain is well controlled and other (voided several times) Exam Narrative: inc c/d/i abdomen soft, nt, nd CHILD PROTECTIVE SERVICES SOCIAL WORKER - PN: Obj Data Vital Signs Vital Signs: Vital Signs - 24 hr 02/06/23 09:21 02/06/23 09:30 02/06/23 09:45 Temperature 97.8 F Pulse Rate 52 L 56 L 53 L Respiratory Rate 10 L 16 14 Blood Pressure 121/71 132/68 122/72 Pulse Oximetry 100 100 100 Oxygen Delivery Simple Face Mask Simple Face Mask Simple Face Mask Oxygen Flow Rate 8 8 8 02/06/23 10:00 02/06/23 10:15 02/06/23 10:30 Temperature Pulse Rate 57 L 64 67 Respiratory Rate 14 12 14 Blood Pressure 121/70 125/70 123/76 Pulse Oximetry 97 98 97 Oxygen Delivery Room Air Room Air Room Air Oxygen Flow Rate 02/06/23 10:45 02/06/23 11:00 02/06/23 12:03 Temperature Pulse Rate 65 60 Respiratory Rate 12 12 16 Blood Pressure 117/75 118/67 Pulse Oximetry 97 97 97 Oxygen Delivery Room Air Room Air Oxygen Flow Rate 02/06/23 11:15 02/06/23 14:00 02/06/23 16:27 Temperature 98.1 F 98.1 F Pulse Rate 65 82 Respiratory Rate 18 16 18 Blood Pressure 116/81 124/86 Pulse Oximetry 97 97 97 Oxygen Delivery Oxygen Flow Rate 02/06/23 16:00 02/06/23 13:00 02/06/23 15:00 Temperature Pulse Rate Respiratory Rate 18 16 18 Blood Pressure Pulse Oximetry 98 97 97 Oxygen Delivery Oxygen Flow Rate 02/06/23 19:38 02/06/23 19:38 02/07/23 00:09 Temperature 98.9 F 99.3 F Pulse Rate 75 75 85 Respiratory Rate 18 18 18 Blood Pressure 125/70 127/74 Pulse Oximetry 99 99 99 Oxygen Delivery Room Air Oxygen Flow Rate 02/07/23 00:09 02/07/23 00:01 02/07/23 04:38 Temperature 99.3 F Pulse Rate 85 66 Respiratory Rate 18 18 18 Blood Pressure 122/75 Pulse Oximetry 99 99 99 Oxygen Delivery Room Air Oxygen Flow Rate 02/07/23 04:38 Temperature Pulse Rate 66 Respiratory Rate 18 Blood Pressure Pulse Oximetry 99 Oxygen Delivery Room Air Oxygen Flow Rate Intake/Output Intake/Output: Intake & Output 02/04/23 02/05/23 02/06/23 02/07/23 23:59 23:59 23:59 23:59 Intake Total 2140 815.5 Output Total 750 600 Balance 1390 215.5 Meds/Results Medications: Active Medications Generic Name Dose Route Start Last Admin Trade Name Freq PRN Reason Stop Dose Admin Hydrocodone Bitart/Acetaminophen 1 tab 02/06/23 11:04 Hydrocodone/Acetaminophen (*Crx) 10-325 Mg Tablet PO Q3H PRN Pain Rated 6 or Greater Hydrocodone Bitart/Acetaminophen 1 tab 02/06/23 11:04 Hydrocodone/Acetaminophen (*Crx) 5-325 Mg Tablet PO Q3H PRN Pain Rated 5 or Less Albuterol 1 puff 02/06/23 11:04 Albuterol Sulfate (*Sp) Aerosol 1 Puff INHALATION Q4H PRN shortness of breath or wheezing Estradiol 0.1 mg 02/06/23 09:00 02/06/23 12:30 Estradiol 7 Day 0.1 Mg Patch TRANSDERM 0.1 mg Q7D LYDIA Administration Dextrose/Lactated Ringer's 1,000 mls @ 125 mls/hr 02/06/23 11:04 02/07/23 04:41 Dextrose 5%/Lactated Ringers IV CONT 0 mls/hr .Q8H LYDIA Infusion Fentanyl Citrate 600 mcg in 30 mls @ 0.5 mls/hr 02/06/23 11:04 02/07/23 04:41 Fentanyl 600 Mcg/Ns 30 Ml Blow Moulding Machine Operator IV CONT 10 mcg/hr PRN PRN 0.5 mls/hr TINSEL MACHINE OPERATOR Management Titration Protocol 10 MCG/HR Ketorolac Tromethamine 30 mg 02/06/23 18:49 02/07/23 01:19 Ketorolac 30 Mg/Ml Vial (*Bkc) IV PUSH 30 mg Q6H PRN Adm
[2023-02-07 08:15] VITALS: BP 112/69; PULSE 68; RESP 18; TEMP 36.8; O2SAT 100
[2023-02-07] MEDS: MONTELUKAST SODIUM 10 MG TABLET PO (08:28)
[2023-02-07] MEDS: SERTRALINE HCL 50 MG TABLET PO (08:28)
[2023-02-07] MEDS: ONDANSETRON INJ 4 MG/2 ML VIAL IV PUSH (08:29)
--- NOTE | 2023-02-07 09:36 | WPDANESPN ---
Anes - Prog Note Post-Op Date/Time: 02/07/23 09:36 Vital Signs: Last Vital Signs Temp 36.8 C 02/07/23 08:15 Pulse 68 02/07/23 08:15 Resp 18 02/07/23 08:15 BP 112/69 02/07/23 08:15 Pulse Ox 100 02/07/23 08:15 O2 Del Method Room Air 02/07/23 04:38 O2 Flow Rate 8 02/06/23 09:45 Pain Score (VAS): 0 I/O: Intake & Output 02/06/23 02/07/23 02/07/23 23:59 07:59 15:59 Intake Total 1240 815.5 Output Total 700 600 Balance 540 215.5 Laboratory Tests 02/07/23 04:09 02/07/23 04:09 WBC 12.7 H RBC 3.63 L Hgb 10.1 L D Hct 31.7 L MCV 87.3 MCH 27.8 MCHC 31.9 L RDW 14.2 Plt Count 239 MPV 10.9 H Immature Gran % (Auto) 0.5 Neut % (Auto) 78.5 H Lymph % (Auto) 12.5 L [place] % (Auto) 8.0 Eos % (Auto) 0.3 Baso % (Auto) 0.2 Lymph # (Auto) 1.58 [place] # (Auto) 1.0 H Eos # (Auto) 0.0 Baso # (Auto) 0.0 Abs Immat Gran (auto) 0.06 H Absolute Neuts (auto) 10.0 H Absolute Nucleated RBC 0.0 Nucleated RBC % 0.0 Patient Feedback: Patient satisfied with anesthetic care.
[2023-02-07 16:00] VITALS: BP 118/79; PULSE 85; RESP 16; TEMP 36.9; O2SAT 98
[2023-02-07 19:30] VITALS: BP 116/70; PULSE 65; RESP 16; TEMP 36.5; O2SAT 99
[2023-02-07] MEDS: HYDROcodone/acetaminophen (*CRX) 5-325 MG TABLET 1 TAB PO (20:20)
[2023-02-08] MEDS: SERTRALINE HCL 50 MG TABLET PO (07:30)
[2023-02-08] MEDS: MONTELUKAST SODIUM 10 MG TABLET PO (07:30)
[2023-02-08] MEDS: HYDROcodone/acetaminophen (*CRX) 5-325 MG TABLET 1 TAB PO ×2 (07:31→09:46)
--- NOTE | 2023-02-08 07:58 | WPDPN ---
Progress Note: A&P Assessment and Plan (1) Post-op pain: Code(s): G89.18 - Other acute postprocedural pain Status: Acute (2) Status post total abdominal hysterectomy and bilateral salpingo-oophorectomy: Code(s): Z90.710 - Acquired absence of both cervix and uterus; Z90.722 - Acquired absence of ovaries, bilateral; Z90.79 - Acquired absence of other genital organ(s) Status: Acute Plan POD 2. Plan DC home today. F/up in office in 1 week for incision check. Time Spent With Patient Time with patient: 15 - 25 minutes Subjective Date/time seen: 02/08/23 07:58 Interval history: Pt doing well. POD 2 from [facility]. Ambulating in room. Tolerating po food and fluid although she reports decreased appetite. Passing flatus. Review of Systems Review of Systems: All systems reviewed & are unremarkable except as noted in HPI and below Exam Const: General: cooperative, no acute distress and awake Orientation/consciousness: patient oriented x3 Limitations: no limitations Resp: Effort & Inspection: normal respiratory effort and able to speak in complete sentences Auscultation: clear to auscultation bilaterally Cardio: Rate: regular rate Peripheral pulses: Peripheral pulses 2+ throughout GI: Inspection: normal to inspection Auscultation: normal bowel sounds : General: Yes bladder normal to palpation Bimanual exam- vagina & uterus: bladder normal to palpation Skin: General skin exam: normal color Other: Incision C/D/I. Skin glue present. Neuro: General: patient oriented x3 Cognition (Neuro): normal cognition Speech: normal speech Extrem: General: normal to inspection Psych: Appearance: grossly normal Mental Status: mental status grossly normal Speech and movement: Normal speech and movement present Affect: normal affect Attitude: cooperative Thought process: Normal thought process present Objective Data Vital Signs Vital Signs: Vital Signs - 24 hr 02/07/23 08:15 02/07/23 16:00 02/07/23 16:00 Temperature 98.3 F 98.4 F Pulse Rate 68 85 85 Respiratory Rate 18 16 16 Blood Pressure 112/69 118/79 Pulse Oximetry 100 98 98 Oxygen Delivery Room Air 02/07/23 19:30 02/07/23 19:30 Temperature 97.7 F Pulse Rate 65 65 Respiratory Rate 16 16 Blood Pressure 116/70 Pulse Oximetry 99 99 Oxygen Delivery Room Air Intake/Output Intake/Output: Intake & Output 02/05/23 02/06/23 02/07/23 02/08/23 23:59 23:59 23:59 23:59 Intake Total 2140 1555.5 Output Total 750 600 Balance 1390 955.5 Meds/Results Medications: Active Medications Generic Name Dose Route Start Last Admin Trade Name Freq PRN Reason Stop Dose Admin Hydrocodone Bitart/Acetaminophen 1 tab 02/06/23 11:04 Hydrocodone/Acetaminophen (*Crx) 10-325 Mg Tablet PO Q3H PRN Pain Rated 6 or Greater Hydrocodone Bitart/Acetaminophen 1 tab 02/06/23 11:04 02/08/23 07:31 Hydrocodone/Acetaminophen (*Crx) 5-325 Mg Tablet PO 1 tab Q3H PRN Administration Pain Rated 5 or Less Albuterol 1 puff 02/06/23 11:04 Albuterol Sulfate (*Sp) Aerosol 1 Puff INHALATION Q4H PRN shortness of breath or wheezing Estradiol 0.1 mg 02/06/23 09:00 02/06/23 12:30 Estradiol 7 Day 0.1 Mg Patch TRANSDERM 0.1 mg Q7D LYDIA Administration Ketorolac Tromethamine 30 mg 02/06/23 18:49 02/07/23 08:28 Ketorolac 30 Mg/Ml Vial (*Bkc) IV PUSH 30 mg Q6H PRN Administration Pain Rated 4-6 Montelukast Sodium 10 mg 02/07/23 09:00 02/08/23 07:30 Montelukast Sodium 10 Mg Tablet PO 10 mg QAM LYDIA Administration Ondansetron HCl 4 mg 02/06/23 11:04 02/07/23 08:29 Ondansetron Inj 4 Mg/2 Ml Vial IV PUSH 4 mg Q6H PRN Administration Nausea Pantoprazole Sodium 40 mg 02/07/23 09:00 02/08/23 07:31 Pantoprazole 40 Mg Tablet PO Not Given QAM LYDIA Fluticasone/Salmeterol 2 puff 02/06/23 11:17 Fluticasone/Salmeterol 115-21 Mcg Inhaler 1 Puff INHALATION Q1
[2023-02-08 08:20] VITALS: BP 128/73; PULSE 74; RESP 18; TEMP 37.6; O2SAT 100
== END 2023-02-08 09:50 | disposition home or self-care (01) | DRG 743 ==
LOC: ANHOB2 11:09
PROVIDERS: Admitting Provider Obstetrics & Gynecology Gynecology; PCP Family Medicine; Visit Provider Advanced Practice Midwife
PROC: 0UT94ZZ Resection of Uterus, Percutaneous Endoscopic Approach (ICD-10-PCS; principal; 2023-02-06 07:30)
DX: D25.9 Leiomyoma of uterus, unspecified (principal); N92.0 Excessive and frequent menstruation with regular cycle; N94.6 Dysmenorrhea, unspecified; K21.9 Gastro-esophageal reflux disease without esophagitis; M19.90 Unspecified osteoarthritis, unspecified site; J45.909 Unspecified asthma, uncomplicated
CPT/HCPCS: 36415; 85025; 88307; A9270; J1100; J1170; J1885; J2250; J2405; J2704; J2710; J3010; J7120; J7121; Q9968

== ENCOUNTER 2023-06-05 12:14 | Outpatient (CLI) | payer BC, SELFPAY ==
--- NOTE | 2023-06-08 15:53 | WPDHOLTEREM ---
Holter/Event Monitor Holter/Event Monitor Date of procedure: 06/05/23 Holter/Event Procedure: 48 Hr Holter Monitor Indications: Tachycardia Conclusion: 1. 48 hour holter monitor on 06/05/23. 2. Underlying rhythm is sinus rhythm. HR range 41-122 bpm; average HR 69 bpm. HR at 41 bpm was at 02:36. 3. There are 8 premature supraventricular complexes and 2 supraventricular couplets. No supraventricular tachycardia. 4. There are 655 premature ventricular complexes, 4 ventricular couplets. No ventricular tachycardia. 5. No sinoatrial or atrioventricular blocks. No significant pauses greater than 2 seconds. 6. No symptoms available for correlation.
== END 2023-06-05 12:15 | disposition home or self-care (01) ==
PROVIDERS: PCP Family Medicine; Visit Provider Family Medicine
DX: R00.0 Tachycardia, unspecified (principal)
CPT/HCPCS: 93225; 93226

== ENCOUNTER 2023-07-08 13:48 | Emergency (ER) | payer BC, SELFPAY ==
--- NOTE | ~2023-07-08 | XR_ITS ---
EXAMINATION: XR chest 2V Exam Date/Time: 07/08/2023 14:20 CDT HISTORY: arrythmia, palpitations Comparison: None. RESULT: Lines, tubes, and devices: None. Lungs and pleura: Clear. Cardiomediastinal silhouette: Unremarkable. Other: No acute osseous or upper abdominal finding. IMPRESSION: No acute cardiopulmonary process. Reviewed, dictated and finalized at location K.
--- NOTE | 2023-07-08 13:53 | ECG_ITS ---
Measurements Intervals [place] Rate: 83 P: 57 ME: 161 QRS: -46 QRSD: 94 T: 55 QT: 365 QTc: 429 Interpretive Statements SINUS RHYTHM POSSIBLE LEFT ATRIAL ENLARGEMENT LOW QRS VOLTAGE IN PRECORDIAL LEADS INCOMPLETE RIGHT BUNDLE BRANCH BLOCK LEFT ANTERIOR FASCICULAR BLOCK BORDERLINE T WAVE ABNORMALITY- ANTERIOR LEADS ABNORMAL ECG COMPARED TO ECG 06/22/2020 14:04:47 LEFT ANTERIOR FASCICULAR BLOCK NOW PRESENT Electronically Signed On 07-09-2023 6:55:11 CDT by Mikey Bennett D.O.
[2023-07-08 13:55] VITALS: BP 113/70; PULSE 81; PULSE 83; RESP 16; TEMP 36.4; O2SAT 100
--- NOTE | 2023-07-08 13:59 | ED.ARRPALP ---
HPI - Arrhythmia/Palpitations General Chief Complaint: Arrhythmia/Palpitations Stated Complaint: Elevated HR Time Seen by Provider: 07/08/23 13:54 History of Present Illness HPI narrative: Patient is a 48-year-old female with history of PVCs, asthma here with palpitations and chest pain. She states she gets frequent episodes of chest discomfort, heart racing and fatigue. She had an episode last or heart rate got up into the 200s. She states that today she got 2 episodes. The 1st occurred while she was vacuuming and her heart rate read on her watch in the 140s. This episode lasted about 30 minutes. Her 2nd episode was similar in length and occurred while she was eating lunch. She notes that she gets some associated fatigue and chest heaviness when this occurs as well as diaphoresis. She denies shortness of breath. She notes that she has seen her primary care doctor, had a Holter monitor, is referred to Cardiology and has an appointment on July [address] Carpenter scheduled regarding her PVCs. She had a previously normal TSH during this workup. She denies any leg swelling, history of PE or DVT, calf pain, recent travels, recent surgeries aside from a hysterectomy in January 2023. She has had mild nasal congestion and an intermittent cough over the last few weeks but denies any fever or chills or other illnesses. Related Data Home Medications Medication Instructions Recorded Confirmed omeprazole magnesium 20 mg 20 mg PO DAILY 10/18/21 05/04/23 tablet,delayed release (Prilosec OTC) sertraline 20 mg/mL oral 20 mg PO DAILY 05/04/23 05/04/23 concentrate (Zoloft) Allergies Allergy/AdvReac Type Severity Reaction Status Date / Time iodine Allergy Severe HIVES/HEADACHE/N Verified 05/04/23 13:34 AND V shellfish derived Allergy Severe Hives Verified 05/04/23 13:34 Review of Systems Review of Systems: CONSTITUTIONAL: Denies fever, chills, or sweats. EYES: Denies visual changes, redness, or discharge. ENT: Mild congestion, Denies rhinorrhea, sore throat, or otalgia. CARDIOVASCULAR: chest pain, palpitations, No edema. RESPIRATORY: Mild intermittent cough or no dyspnea. GASTROINTESTINAL: Denies abdominal pain, nausea, vomiting, or diarrhea. GENITOURINARY: Denies dysuria or hematuria. SKIN: Denies rash or itching. MUSCULOSKELETAL: Denies back pain, joint pain, or myalgia. NEUROLOGIC: Denies headache, numbness, or weakness. Generalized fatigue. PSYCHIATRIC: Denies anxiety or depression. [facility] Past Medical History Medical History (Updated 07/08/23 @ 17:21 by Aparna Ngo MD) Arthritis Asthma BMI 27.0-27.9,adult Claustrophobia GERD (gastroesophageal reflux disease) (normal spontaneous vaginal delivery) x3 Tachycardia Surgical History Surgical History H/O dilation and curettage History of breast biopsy History of endometrial ablation History of hysteroscopy Family History Family History Mother Family history of malignant neoplasm of breast Family history of malignant neoplasm of thyroid Skin cancer Father Family history of type 2 diabetes mellitus Sibling No problems noted. Other Diabetes mellitus Family history of type 1 diabetes mellitus Heart disease High cholesterol Hypertension Medullary carcinoma Social History Social History Smoking status: Never smoker Second hand tobacco smoke exposure: Yes Alcohol intake: current Drinks per week: 1 Alcohol use details: 1/MONTH Substance use: never Substance use type: does not use Lack of Transportation: No Lack of Food: Never True Current Housing: I Have Housing Concerned About Future Housing: No Difficulty Paying Gas/Electric Bills: No Difficulty Paying for Meds: No Currently Unemployed: No Education: Associate Degree [employer]
[2023-07-08 14:17] LABS: Basophils Absolute Auto 0.1 K/mm3 (0.0-0.1); Basophils Percent Auto 0.8 % (0.2-1.2); Eosinophils Absolute Auto 0.2 K/mm3 (0-0.3); Eosinophils Percent Auto 2.4 % (0-4.4); Hematocrit 37.4 % (37.0-47.0); Immature Granulocyte Absolute 0.01 K/mm3 (0.00-0.031); Immature Granulocyte Percent A 0.2 % (0-0.5); Lymphocytes Absolute Auto 1.75 K/mm3 (0.9-3.2); Mean Corpuscular HGB Conc 32.1 g/dl (32-36); Mean Corpuscular Hemoglobin 27.1 pg (26-34); Mean Corpuscular Volume 84.6 fl (80-100); Monocytes Absolute Auto 0.4 K/mm3 (0.1-0.6); Monocytes Percent Auto 6.6 % (2.6-8.5); Neutrophils Absolute Auto 3.9 K/mm3 (1.3-6.7); Platelet Count Result 246 k/mm3 (150-375); Red Blood Count 4.42 M/mm3 (4.2-5.4); Red Cell Distribution Width 15.3 % (11.5-14.5); White Blood Count 6.3 K/mm3 (4.5-10.0)
[2023-07-08 14:28] LABS: Alanine Aminotransferase 19 U/L (6-35); Albumin Level 4.3 g/dL (3.5-5.1); Alkaline Phosphatase 74 U/L (38-126); Anion Gap 5 mmol/L (8-16); Aspartate Amino Transferase 25 U/L (14-36); Bilirubin,Total 0.5 mg/dL (0.2-1.3); Blood Urea Nitrogen 14 mg/dL (7-17); Calcium 9.2 mg/dL (8.4-10.2); Carbon Dioxide 29 mmol/L (22-30); Chloride 105 mmol/L (98-107); Estimated CRCL calculation 77 ml/min; Estimated Glomerular Filt Rate > 60; Glucose 100 mg/dL (65-110); Potassium 3.7 mmol/L (3.4-5.0); Sodium 139 mmol/L (137-145)
[2023-07-08 14:29] LABS: Magnesium 2.3 mg/dL (1.6-2.3); Prothrombin Time 13.7 Seconds (11.1-14.7)
[2023-07-08 14:40] LABS: Troponin I < 0.012 ng/mL (0.000-0.034)
[2023-07-08 14:55] LABS: D Dimer 0.29 ug/mL (<0.48)
[2023-07-08 14:59] LABS: Thyroid Stimulating Hormone Reflex 0.427 uIU/mL (0.465-4.68)
[2023-07-08] MEDS: POTASSIUM BICARBONATE 25 MEQ TABEF 50 MEQ PO (15:21)
[2023-07-08 15:24] VITALS: BP 111/73; PULSE 77; RESP 18; O2SAT 100
[2023-07-08 16:26] LABS: Total Triiodothyronine (T3) 1.32 NG/ML (0.97-1.69)
[2023-07-08 16:50] VITALS: BP 115/84; PULSE 71; RESP 20; O2SAT 100
[2023-07-08 17:16] LABS: Troponin I < 0.012 ng/mL (0.000-0.034)
[2023-07-08 17:21] VITALS: BP 112/76; PULSE 66; RESP 20; O2SAT 100
== END 2023-07-08 17:29 | disposition home or self-care (01) ==
PROVIDERS: Emergency Medicine; Emergency Provider Student in an Organized Health Care Education/Training Program; PCP Family Medicine
DX: R00.2 Palpitations (principal); J45.909 Unspecified asthma, uncomplicated; M19.90 Unspecified osteoarthritis, unspecified site; K21.9 Gastro-esophageal reflux disease without esophagitis; R94.31 Abnormal electrocardiogram [ECG] [EKG]; I45.2 Bifascicular block
CPT/HCPCS: 36415; 71046; 80053; 83735; 84439; 84443; 84480; 84484; 85025; 85380; 85610; 85730; 93005; 99284; A9270

== ENCOUNTER 2024-01-26 09:23 | Outpatient (CLI) | payer BC, SELFPAY ==
--- NOTE | ~2024-01-26 | MMUS_ITS ---
EXAMINATION: MM diagnostic fernando BI w kaz, US breast RT complete HISTORY: Follow-up right breast masses TECHNIQUE: Additional 3-D tomosynthesis images of the breasts were performed and synthetic 2-D images were generated. CAD analysis was submitted and interpreted. High resolution complete right breast ul trasound was performed. COMPARISON: None Comparison to multiple prior studies sequentially, with oldest reviewed study dated 01/12/2022. BREAST PARENCHYMAL COMPOSITION: Dense: The breasts are heterogeneously dense, which may obscure small masses FINDINGS: MAMMOGRAPHIC FINDINGS: The left breast is stable without evidence for malignancy. There is no a new mass in the lower centra l aspect of the right breast posteriorly with central calcification. There is a mass in the upper out er quadrant of the right breast which is not significantly changed from prior examination. There is a new mass in the lower outer quadrant of the right breast, best seen on CC view, middle third. ULTRASOUND: Complete US of all 4 quadrants of the right breast and retroareolar region was reviewed. At 12:00, 4 cm from the nipple there is a 5 mm intramammary lymph node. At 1:00, 7 cm from the nipple, there is a 7 mm cyst. At 2:00, 6 cm from the nipple, there is an oval hypoechoic 8mm mass with parallel orienta tion, low level internal echoes, likely benign. At 2:00, 6 cm from the nipple, there is a 5 mm cyst. At 3:00, 10 cm from the nipple there is a 4 mm cyst. At 3:00, 4 cm from the nipple there is a [address] At 6:00, 5 cm from the nipple, there is a hypoechoic mass with central echogenicity measuring 8 x 9 x 6 mm, likely corresponding to the new mass seen on mammography. There is no internal vascularity . At 7:00, 8 cm from the nipple there is a 5 mm cyst. At 8:00, 7 cm from the nipple there is a 3 mm c yst. At 11:00, 8 cm from the nipple there is an oval hypoechoic 9 mm mass measuring 9 x 4 x 7 mm whic h appears smaller than on prior examination, likely benign complicated cyst. No internal vascularity or posterior features. IMPRESSION: 1. New right breast mass located at 6:00, 5 cm from the nipple measuring 9 mm, likely corresponding t o new mammographic finding. Ultrasound-guided right breast biopsy recommended. 2. Additional right breast masses are likely benign. Six-month follow-up ultrasound recommended. BI-RADS category 4, suspicious findings. Reviewed, dictated and finalized at location A. IMPRESSION: 1. New right breast mass located at 6:00, 5 cm from the nipple measuring 9 mm, likely corresponding to new mammographic finding. Ultrasound-guided right breas t biopsy recommended. 2. Additional right breast masses are likely benign. Six-month follow-up ultras ound recommended. BI-RADS category 4, suspicious findings.
== END 2024-01-26 09:24 ==
LOC: MICIMG 09:24
PROVIDERS: PCP Nurse Practitioner; Visit Provider Nurse Practitioner
DX: R92.8 Other abnormal and inconclusive findings on diagnostic imaging of breast (principal)
CPT/HCPCS: 76641; 77062; 77066; G0279

== ENCOUNTER 2024-04-30 10:57 | Outpatient (CLI) | payer BC, SELFPAY ==
--- NOTE | ~2024-04-30 | XR_ITS ---
Thoracic spine: Clinical Indication: Back pain AP and lateral views were performed. No fracture is seen. There is normal alignment of the vertebrae. The intervertebral disc spaces appe ar normal. Paravertebral soft tissues appear normal. Impression: No significant abnormalities noted. Reviewed, dictated and finalized at [facility]. Impression: No significant abnormalities noted.
== END 2024-04-30 10:58 ==
LOC: MICIMG 10:59
PROVIDERS: PCP Family Medicine; Visit Provider Physician Assistant Medical
DX: M54.6 Pain in thoracic spine (principal); G89.29 Other chronic pain
CPT/HCPCS: 72072

== ENCOUNTER 2024-07-06 08:01 | Emergency (ER) | payer BC, SELFPAY ==
--- NOTE | 2024-07-06 08:11 | ED.SKABFB ---
HPI - Skin/Abscess/Foreign Bdy General Chief complaint: Skin/Abscess/Foreign Body Stated complaint: rash Time Seen by Provider: 07/06/24 08:22 Source: patient and RN notes reviewed Mode of arrival: ambulatory Limitations: no limitations History of Present Illness HPI narrative: 49-year-old female presents concern for generalized itchy evolving rash. She reports the rash started on on her arms and every days she has woken up with it worse and now it is on her entire body. Reports she took Benadryl with very temporary mild relief. She denies swollen lips, swollen tongue, trouble breathing. She reports history of shellfish allergy but she has not had any exposure to shellfish or iodine recently. She reports she recently finished a course of Macrobid for urinary tract infection about a week ago. MD complaint: rash Related Data Home Medications Medication Instructions Recorded Confirmed omeprazole magnesium 20 mg 20 mg PO DAILY 10/18/21 06/24/24 tablet,delayed release (Prilosec OTC) estradiol 1 mg tablet mg PO DAILY 04/15/24 06/24/24 Allergies Allergy/AdvReac Type Severity Reaction Status Date / Time iodine Allergy Severe HIVES/HEADACHE/N Verified 07/06/24 08:12 AND V shellfish derived Allergy Severe Hives Verified 07/06/24 08:12 Review of Systems Review of Systems: CONSTITUTIONAL: Denies malaise, chills, sweats, or fever. EYES: Denies redness, or discharge. ENT: Denies rhinorrhea, congestion, swollen lips, swollen tongue CARDIOVASCULAR: Denies chest pain, palpitations, or edema. RESPIRATORY: Denies cough or dyspnea. GASTROINTESTINAL: Denies abdominal pain, nausea, vomiting SKIN: Reports generalized itchy rash MUSCULOSKELETAL: Denies joint pain or myalgia. NEUROLOGIC: Denies headache. All systems reviewed & are unremarkable except as noted in HPI and below PMFSH Past Medical History Medical History Arthritis Asthma BMI 31.0-31.9,adult Claustrophobia Colon cancer screening Encounter for screening for lipid disorder Family history of hypertension Family history of thyroid cancer GERD (gastroesophageal reflux disease) Hx of scoliosis (normal spontaneous vaginal delivery) x3 Post-op pain Routine history and physical examination of adult Screening for diabetes mellitus Screening for thyroid disorder Tachycardia Surgical History Surgical History H/O dilation and curettage History of breast biopsy History of endometrial ablation History of hysteroscopy Status post total abdominal hysterectomy and bilateral salpingo-oophorectomy Family History Family History Mother Family history of malignant neoplasm of breast Family history of malignant neoplasm of thyroid Skin cancer Breast cancer Father Family history of type 2 diabetes mellitus Diabetes mellitus Hyperlipidemia Sibling Hyperlipidemia Other Family history of type 1 diabetes mellitus Heart disease High cholesterol Hypertension Medullary carcinoma Social History Social History Smoking status: Never smoker Second hand tobacco smoke exposure: Yes Alcohol intake: current Drinks per week: 1 Alcohol use details: 1/MONTH Substance use: never Substance use type: does not use Do You Feel Safe in your Home?: Yes Lack of Transportation: No Lack of Food: Never True Current Housing: I Have Housing Concerned About Future Housing: No Difficulty Paying Gas/Electric Bills: No Difficulty Paying for Meds: No Currently Unemployed: No Education: Associate Degree Difficulty w/ Childcare or Family Care: No Living arrangements: with family Additional living arrangements comments: and 2 daUGHTERS Occupation/Education: occupation Additional occupation/education comm
[2024-07-06 08:15] VITALS: BP 135/85; PULSE 78; RESP 16; TEMP 36.6; O2SAT 100
== END 2024-07-06 08:36 | disposition home or self-care (01) ==
PROVIDERS: Emergency Provider Nurse Practitioner; PCP Family Medicine
DX: R21 Rash and other nonspecific skin eruption (principal); J45.909 Unspecified asthma, uncomplicated; K21.9 Gastro-esophageal reflux disease without esophagitis; M19.90 Unspecified osteoarthritis, unspecified site
CPT/HCPCS: 99213; G0463

== ENCOUNTER 2024-09-25 15:18 | Outpatient (CLI) | payer BC, SELFPAY ==
--- NOTE | ~2024-09-25 | US_ITS ---
LEFT LOWER EXTREMITY VENOUS ULTRASOUND Ordering provider: Ty Talley NP History: . Leg redness and tenderness . Comparison: None. FINDINGS: --COMMON FEMORAL: Patent and free of thrombus. Normal compressibility, phasic flow and augmentation. --PROXIMAL SUPERFICIAL FEMORAL: Patent and free of thrombus. Normal compressibility, phasic flow and augmentation. --DISTAL SUPERFICIAL FEMORAL: Patent and free of thrombus. Normal compressibility, phasic flow and au gmentation. --POPLITEAL: Patent and free of thrombus. Normal compressibility, phasic flow and augmentation. --POSTERIOR TIBIAL: Patent and free of thrombus. Normal compressibility, phasic flow and augmentation . IMPRESSION: Negative left lower extremity venous US. No deep vein thrombosis. Reviewed, dictated and finalized at location A. 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
== END 2024-09-25 15:19 | disposition home or self-care (01) ==
PROVIDERS: PCP Family Medicine
DX: M79.669 Pain in unspecified lower leg (principal); Z79.899 Other long term (current) drug therapy
CPT/HCPCS: 93971

== ENCOUNTER 2025-02-27 13:21 | Outpatient (CLI) | payer BC, SELFPAY ==
--- NOTE | ~2025-02-27 | MM_ITS ---
EXAMINATION: MM screening fernando BI w kaz HISTORY: Screening TECHNIQUE: Craniocaudal and mediolateral oblique 3-D tomosynthesis images were obtained and synthetic 2-D images were generated. CAD analysis was submitted and interpreted. COMPARISON: Comparison to multiple prior studies sequentially, with oldest reviewed study dated 12/08. BREAST PARENCHYMAL COMPOSITION: Dense: The breasts are heterogeneously dense, which may obscure small masses FINDINGS: The left breast is stable without evidence for malignancy. There is a developing mass in th e upper inner quadrant of the right breast, posterior third. IMPRESSION: 1. Developing right breast mass, upper inner quadrant, posterior third. 2. Additional mammographic views and possible breast ultrasound are recommended. BI-RADS Category 0: Incomplete: Needs additional imaging evaluation. Reviewed, dictated and finalized at location A. IMPRESSION: 1. Developing right breast mass, upper inner quadrant, posterior third. 2. Additional mammographic views and possible breast ultrasound are recommended . BI-RADS Category 0: Incomplete: Needs additional imaging evaluation.
== END 2025-02-27 13:22 | disposition home or self-care (01) ==
PROVIDERS: PCP Family Medicine; Visit Provider Obstetrics & Gynecology Gynecology
DX: Z12.31 Encounter for screening mammogram for malignant neoplasm of breast (principal); N63.12 Unspecified lump in the right breast, upper inner quadrant
CPT/HCPCS: 77063; 77067

== ENCOUNTER 2025-03-04 13:01 | Outpatient (CLI) | payer BC, SELFPAY ==
--- NOTE | ~2025-03-04 | DEXA_ITS ---
Bone Density Report Name: ARSEN MARIN Age: 50 Sex: Female Ethnicity: White Date of : 1975 Indication: postmenopausal; screening for osteoporosis; height loss; asthma or emphysema; hysterectomy; Referring Provider: LES, ELSA Study: Bone densitometry was performed. Exam Date: March 04, 2025 Accession number: [id number] Bone Density: Region BMD T-score Z-score Classification AP Spine(L1-L4) 1.149 0.9 1.7 Normal Femoral Neck (Left) 0.847 0.0 0.8 Normal Total Hip (Left) 0.966 0.2 0.7 Normal Femoral Neck (Right) 0.837 -0.1 0.7 Normal Total Hip (Right) 0.981 0.3 0.8 Normal Total Hip Mean 0.973 0.3 0.8 Normal World Health Organization criteria for BMD impression classify patients as: Normal (T-score at or above -1.0), Osteopenia (T-score between -1.0 and -2.5), or Osteoporosis (T-score at or below -2.5). 10-year Fracture Risk: FRAX not reported because: All T-scores for Spine Total, Hip Total, Femoral Neck at or above -1.0 Clinical Information Provided by Patient: Has used the following medications: HRT (i.e. estrogen/hormone therapy) Has the following medical conditions: Asthma or Emphysema, Hysterectomy Patient maximum height was 68.25 Menopause Age: 48 Drinks caffeinated beverages Onset of menses at age 11 Number of children 3 Impression: The patient has normal bone mass. Discussion: BONE DENSITY IS ABOVE THE MINIMUM DESIRABLE LEVEL AT ALL SKELETAL SITES TESTED. This patient?s bone mineral density is above the minimum desirable level (T-score -1.0 or better) at all sites measured. The patient should follow a healthful lifestyle (good nutrition with adequate calcium and vitamin D, and appropriate weight-bearing exercise). Follow-Up: Consider repeating this study in 5 years or sooner if there is some new clinical indication. Reported by: JAGJIT on 03/05/2025 12:43:00 PM. Reviewed, dictated and finalized at location A.
== END 2025-03-04 13:02 | disposition home or self-care (01) ==
LOC: MICIMG 13:02
PROVIDERS: PCP Family Medicine; Visit Provider Nurse Practitioner
DX: Z78.0 Asymptomatic menopausal state (principal); Z13.820 Encounter for screening for osteoporosis
CPT/HCPCS: 77080

== ENCOUNTER 2025-03-20 08:17 | Outpatient (CLI) | payer BC, SELFPAY ==
--- NOTE | ~2025-03-20 | MMUS_ITS ---
Examination: MM diagnostic JEREMIE RT W kaz and US breast RT limited INDICATION: 50-year old female; BI-RADS 0, developing right breast mass. COMPARISON: 02/27/2025 TECHNIQUE: Digital breast tomosynthesis True lateral and spot compression CC and MLO views of the RIG HT breast were obtained with computer-aided detection to assist in interpretation of the study. FINDINGS: The breasts are heterogeneously dense, which may obscure small masses. The focal asymmetry of concern in the upper inner right breast partially persists only on the cc view . Ultrasound was performed for further evaluation. RIGHT BREAST ULTRASOUND FINDINGS: Targeted evaluation of the area of concern was completed. There is no sonographic abnormality in the RIGHT breast that correlate to the area of Mammographic finding. However, there are 2 incidental find ings that do not correlate and these include a 0.7 cm circumscribed hypoechoic mass at 1:00, 9 cm fro m the nipple and a 0.3 cm cyst at 2:00, 6 cm from the nipple. IMPRESSION: Probable Benign RIGHT breast asymmetry in the medial breast which has no suspicious features and no s onographic correlate. Short-term follow-up recommended. Probably benign right breast hypoechoic mass at 1:00. Short-term follow-up recommended. BI-RADS 3, PROBABLY BENIGN Reviewed, dictated and finalized at location B. IMPRESSION: Probable Benign RIGHT breast asymmetry in the medial breast which has no suspic ious features and no sonographic correlate. Short-term follow-up recommended. Probably benign right breast hypoechoic mass at 1:00. Short-term follow-up savi mmended. BI-RADS 3, PROBABLY BENIGN
== END 2025-03-20 08:18 | disposition home or self-care (01) ==
PROVIDERS: PCP Family Medicine; Visit Provider Obstetrics & Gynecology Gynecology
DX: R92.8 Other abnormal and inconclusive findings on diagnostic imaging of breast (principal)
CPT/HCPCS: 76642; 77061; 77065; G0279